=== PATIENT | female | born 1985 | race Caucasian/White ===

== ENCOUNTER 2016-08-10 11:02 | Emergency (ER) | payer SELFPAY ==
[~2016-08-10] VITALS: Ht 188 cm; Wt 83.9 kg
--- NOTE | 2016-08-10 11:31 | NUR ---
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 Pt is aao3, appears in no apparent distress, respiration even and unlabored. Patient denies chest pain, no sob at this time. Skin is warm to touch and non diaphoretic. afebrile. vss. [place] noted. with family hx of pe
--- NOTE | 2016-08-10 11:32 | NUR ---
iv accessed to [facility].blood sample sent to lab
[2016-08-10 11:33] LABS: BASOPHILS % (AUTO) 0.6 % (0.0-2.0); EOSINOPHILS # (AUTO) 0.3 /CMM (0.0-0.7); EOSINOPHILS % (AUTO) 4.1 % (0.0-6.0); HEMATOCRIT 42 % (33-45); HEMOGLOBIN 13.9 g/dL (11.5-14.8); LYMPHOCYTES # (AUTO) 1.4 /CMM (0.8-4.8); LYMPHOCYTES % (AUTO) 18.3 % (20.0-44.0); MEAN CORPUSCULAR HEMOGLOBIN 29 PG (26.0-33.0); MEAN CORPUSCULAR HGB CONC 33 g/dl (31.0-36.0); MEAN CORPUSCULAR VOLUME 88 fL (82-100); MONOCYTES # (AUTO) 0.6 /CMM (0.1-1.30); MONOCYTES % (AUTO) 7.7 % (2.0-12.0); NEUTROPHILS # (AUTO) 5.1 /CMM (1.8-8.9); NEUTROPHILS % (AUTO) 69.3 % (43.0-81.0); PLATELET COUNT (AUTO) 237 /CMM (150-450); RDW COEFFICIENT OF VARIATION 12.4 (11.5-15.0); RED BLOOD CELL COUNT(AUTO) 4.75 MIL/uL (4.0-5.2); WHITE BLOOD COUNT (AUTO) 7.4 K/uL (4.3-11.0)
[2016-08-10 11:41] LABS: CALCIUM, SERUM 8.9 mg/dL (8.5-10.1); CREATININE 0.9 mg/dL (0.6-1.3); POTASSIUM 3.8 mmol/L (3.5-5.1)
[2016-08-10 11:45] LABS: PROTHROMBIN TIME 10.4 SECS (9.5-12.7)
[2016-08-10] MEDS ORDERED: IV NS 0.9% 250 ML IV ONE (11:57)
[2016-08-10] MEDS ORDERED: CT SWABBABLE VALVE TRANS SET 1 EA INFUS.SET MC ONE (11:58)
[2016-08-10] MEDS ORDERED: IOHEXOL-350 100 ML VIAL IV ONE (11:58)
[2016-08-10 13:44] VITALS: BP 138/78
--- NOTE | 2016-08-10 13:45 | NUR ---
Patient discharged to home in stable condition. Written and verbal after care instructions given. Patient verbalizes understanding of instruction.
== END 2016-08-10 13:47 | disposition home or self-care (01) ==
LOC: ER 11:04
DX: R06.02 Shortness of breath (principal); Z82.49 Family history of ischemic heart disease and other diseases of the circulatory system
CPT/HCPCS: 36415; 71275; 80048; 84703; 85025; 85730; 93005; 99285; A4606; J7050; Q9967; Z7610